=== PATIENT | male | born 1955 | race Asian ===

== ENCOUNTER 2023-11-10 10:41 | Emergency (ER) | payer OTHER ==
[~2023-11-10] VITALS: Ht 175.3 cm; Wt 75.0 kg
[2023-11-10 11:39] VITALS: TEMP 97.9
[2023-11-10] MEDS ORDERED: AMLO-258 PO (11:57)
[2023-11-10] MEDS ORDERED: LISI-894 PO (11:57)
[2023-11-10] MEDS ORDERED: ATOR20TA PO (11:57)
[2023-11-10] MEDS: LIDOCAINE 5% TRANSDERMAL PATCH TD ONE (13:11)
[2023-11-10] MEDS: ACETAMINOPHEN 500 MG TABLET PO ONE (13:11)
[2023-11-10 13:17] VITALS: BP 131/78; PULSE 63; RESP 16; O2SAT 98
== END 2023-11-10 15:05 | disposition home or self-care (01) ==
LOC: EMS 10:43
DX: S89.91XA Unspecified injury of right lower leg, initial encounter (principal); S39.92XA Unspecified injury of lower back, initial encounter; I10 Essential (primary) hypertension; E78.00 Pure hypercholesterolemia, unspecified; Z79.899 Other long term (current) drug therapy; W22.09XA Striking against other stationary object, initial encounter; Y93.89 Activity, other specified; Y92.89 Other specified places as the place of occurrence of the external cause; Y99.8 Other external cause status
CPT/HCPCS: 72100; 99284; 73590-TC; Z7502; Z7610